=== PATIENT | female | born 2005 | race Two or more races ===

== ENCOUNTER 2023-04-13 13:42 | Emergency (ER) | payer MEDICAID, SELFPAY ==
[2023-04-13 13:48] VITALS: BP 145/97; PULSE 105; RESP 18; TEMP 36.6; O2SAT 99; BMI 25.7
--- NOTE | 2023-04-13 13:59 | ED_ITS ---
HPI - General Adult General Time Seen by Provider: 13:59 Date Seen: 04/13/23 Chief complaint: Skin/Abscess/Foreign Body Stated complaint: Cotton stuck in ear Time Seen by Provider: 04/13/23 13:54 Source: patient and RN notes reviewed Mode of arrival: ambulatory Limitations: no limitations History of Present Illness HPI narrative: Patient is a 18-year-old [employer] student coming in with end of a Q- tip stuck in her right ear. She was cleaning her ear this morning with a Q-tip became stuck. She did attempt to use water to rinse it out of her ear. She is not having any significant pain. Related Data Home Medications Medication Instructions Recorded Confirmed No Known Home Medications 04/13/23 04/13/23 Allergies Allergy/AdvReac Type Severity Reaction Status Date / Time No Known Drug Allergies Allergy Verified 04/13/23 13:48 Review of Systems Narrative: As per HPI. PFS PFS Social History Smoking Status: Never smoker Do you use any of these nicotine containing products: None Second hand tobacco smoke exposure: No How often do you have a drink containing alcohol: monthly or less How many standard drinks containing alcohol do you have on a typical day: 1 or 2 How often do you have six or more drinks on one occasion: Never AUDIT-C Alcohol total score: 1 Non-prescribed substance use: denies use service: No Exam Const: Vital Signs, click to edit/add: Vital Signs - 24 hr 04/13/23 13:48 Temperature 97.9 F Pulse Rate [Pulse Oximeter] 105 H Respiratory Rate 18 Blood Pressure [Le ft Forearm] 145/97 H Pulse Oximetry 99 Oxygen Delivery Me thod Room Air 18-year-old female is alert interactive no apparent stressed left ear canal normal. Right canal contains wet appearing end of acute tip. With the head lamp and mosquito, this was easily pulled out of the ear. Underlying here in TM without any traumatic change. Patient tolerated this well without any complications. Course Vital Signs Vital signs: Initial Vital Signs Temperature 97.9 F 04/13/23 13:48 Temperature Source Temporal Artery Scan 04/13/23 13:48 Pulse Rate 105 H 04/13/23 13:48 Pulse Rhythm Regular 04/13/23 13:48 Respiratory Rate 18 04/13/23 13:48 Blood Pressure 145/97 H 04/13/23 13:48 Blood Pressure Mean 113 H 04/13/23 13:48 Blood Pressure Position Sitting 04/13/23 13:48 Pulse Oximetry 99 04/13/23 13:48 Oxygen Delivery Method Room Air 04/13/23 13:48 Vital Signs Temperature 97.9 F 04/13/23 13:48 Pulse Rate 105 H 04/13/23 13:48 Respiratory Rate 18 04/13/23 13:48 Blood Pressure 145/97 H 04/13/23 13:48 Pulse Oximetry 99 04/13/23 13:48 Oxygen Delivery Method Room Air 04/13/23 13:48 Temperature 97.9 F 04/13/23 13:48 Pulse Rate 105 H 04/13/23 13:48 Respiratory Rate 18 04/13/23 13:48 Blood Pressure 145/97 H 04/13/23 13:48 Pulse Oximetry 99 04/13/23 13:48 Oxygen Delivery Method Room Air 04/13/23 13:48 Critical Care Time Critical Care Time Critical Care Time: No Discharge Plan Discharge Clinical Impression: Foreign body Patient Disposition: Home, Self-Care Condition: Stable Additional Instructions: It is recommended that you not put anything in your ear. If you should have any residual discomfort, can use Tylenol/ibuprofen per bottle direction if needed. Doubt that you will have any significant complications but should you have increasing ear pain or drainage over the next week, need re-evaluation. Activity Level: Activity as Tolerated Prescriptions: No Action No Known Home Medications Stand Alone Forms: [facility] Info Inst[facility]
== END 2023-04-13 14:24 | disposition home or self-care (01) ==
LOC: ED 14:22
PROVIDERS: Emergency Provider Family Medicine
DX: T16.1XXA Foreign body in right ear, initial encounter (principal)
CPT/HCPCS: 69200; 99282